=== PATIENT | female | born 1975 | race Caucasian/White ===

== ENCOUNTER 2016-05-21 12:27 | Inpatient (IN) | payer OTHER ==
[~2016-05-21] VITALS: Ht 175.3 cm; Wt 85.0 kg
[2016-05-21] MEDS ORDERED: MoRPHine SULFATE 4 MG/ML 1 ML CARP\\VIAL IV STA ×2 (12:40→14:52)
[2016-05-21] MEDS ORDERED: ONDANSETRON INJ 2 MG/ML 2 ML VIAL IV STA (12:40)
--- NOTE | 2016-05-21 12:43 | EMERGENCY ROOM VISIT NOTE ---
History First contact with patient: 12:34 Chief Complaint: ANKLE PAIN Stated Complaint: LEFT ANKLE PAIN History of Present Illness The patient is a 40 year old female who presents to the Emergency Room with complaints of left ankle pain. The patient states that she was walking in a parking garage and slipped on ice. She injured her left ankle. She rates her discomfort a 7/10. She states she has not been able to walk on the left ankle and it is deformed. She denies striking her head or having loss of consciousness. She denies abdominal pain, nausea or vomiting. She denies any other injury. She denies injury to the ankle in the past. Review of Systems A 10 system review of systems was completed with positives and pertinent negatives listed in the HPI. Past Medical/Surgical History Medical Problems: (1) Ankle fracture, bimalleolar, closed Patient denies Social History Smoking Status: Never Smoker Housing Status: lives with family Current/Historical Medications Scheduled Ferrous Sulfate (Iron), 2 TABS PO DAILY Allergies Coded Allergies: No Known Allergies (Unverified , 05/21/16) Physical Exam Vital Signs Date Time Temp Pulse Resp B/P Pulse Ox O2 Delivery O2 Flow Rate FiO2 05/21/16 14:11 62 17 106/78 99 Room Air 05/21/16 12:31 36.8 92 18 117/79 92 Room Air Physical Exam VITALS: Vitals are noted on the nurse's note and reviewed by myself. Vital signs stable. GENERAL: This is a 40-year-old female, in no acute distress, nondiaphoretic, well-developed well-nourished. SKIN: T there is deformity, edema and ecchymosis to the left ankle. There is no tenting of the skin. Capillary reflex less than 2 seconds. HEAD: Normocephalic atraumatic. EARS: The external ears and normal in appearance. EYES: Pupils equal round and reactive to light and accommodation. Conjunctivae without injection, sclerae without icterus. Extraocular movements intact. NOSE: Patent, turbinates without inflammation or discharge. MOUTH: Mucous membranes moist. Tonsils are not enlarged. Pharynx without erythema or exudate. Uvula midline. Airway patent. Tongue does not deviate. NECK: Supple without nuchal rigidity. No lymphadenopathy. No thyromegaly. Cervical spine is nontender. No JVD. HEART: Regular rate and rhythm without murmurs gallops or rubs. LUNGS: Clear to auscultation bilaterally without wheezes, rales or rhonchi. No retractions or accessory muscle use. MUSCULOSKELETAL: There is obvious deformity and instability to the left ankle. There are no open areas. There is mild tenderness to palpation to the foot and the proximal fibula. The remaining extremities are unremarkable. NEURO: Patient was alert and oriented to person place and time. Normal sensation to light and sharp touch. Deep tendon reflexes 2+ throughout. No focal neurological deficits. Medical Decision & Procedures ER Provider Diagnostic Interpretation: [~ rep ct add3]] LEFT ANKLE 3 VIEWS CLINICAL HISTORY: Left ankle injury and pain. FINDINGS: 3 views of left ankle are obtained. No prior studies are available for comparison at the time of dictation. The skeletal structures are well mineralized. There is a minimally distracted spiral fracture through the distal fibula. Additionally, there is a distracted avulsion fracture of the medial malleolus, with widening of the medial joint space which measures up to 8 mm. There is associated ankle joint effusion and surrounding soft tissue edema. IMPRESSION: Fracture/dislocation of the left ankle as above. Laboratory Results 05/21/16 13:07 Test 05/21/16 13:07 05/21/16 14:50 RDW Standard Deviation 48.6 fL (36.4-46.3) RDW Coefficient of Variation 14.7 % (11.5-14.5) White Blood Count 4.79 K/uL (4.8-10.8) Red Blood Count 4.19 M/uL (4.2-5.4) Hemoglobin 12.7 g/dL (12.0-16.0) Hematocrit 38.0 % (37-47) Mean Corpuscular Volume 90.7 fL (80-100) Mean Corpuscular Hemoglobin 30.3 pg (25-34) Mean Corpuscular Hemoglobin Concent 33.4 g/dl (32-36) Platelet Count 217 K/uL (130-400) Mean Platelet Volume 10.9 fL (7.4-10.4) Neutrophils (%) (Auto) 70.6 % Lymphocytes (%) (Auto) 21.5 % Monocytes (%) (Auto) 5.4 % Eosinophils (%) (Auto) 1.9 % Basophils (%) (Auto) 0.4 % Neutrophils # (Auto) 3.38 K/uL (1.4-6.5) Lymphocytes # (Auto) 1.03 K/uL (1.2-3.4) Monocytes # (Auto) 0.26 K/uL (0.11-0.59) Eosinophils # (Auto) 0.09 K/uL (0-0.5) Basophils # (Auto) 0.02 K/uL (0-0.2) Immature Granulocyte % (Auto) 0.2 % Immature Granulocyte # (Auto) 0.01 K/uL (0.00-0.02) Anion Gap 11.0 mmol/L (3-11) Est Creatinine Clear Calc Drug Dose 134.3 ml/min Estimated GFR () 128.1 Estimated GFR (Non- 110.5 BUN/Creatinine Ratio 23.8 (10-20) Calcium Level 8.7 mg/dl (8.5-10.1) Medications Administered Medications (Trade) Dose Ordered Sig/Fanny Route Start Time Stop Time Status Last Admin Dose Admin Morphine Sulfate (MoRPHine SULFATE INJ) 4 mg NOW STAT IV 05/21/16 12:40 05/21/16 12:42 DC 05/21/16 13:01 4 MG Ondansetron HCl (Zofran Inj) 4 mg NOW STAT IV 05/21/16 12:40 05/21/16 12:42 DC 05/21/16 13:01 4 MG Morphine Sulfate (MoRPHine SULFATE INJ) 4 mg NOW STAT IV 05/21/16 14:52 05/21/16 14:53 DC 05/21/16 15:01 4 MG Procedure An Ortho-Glass splint was applied. I did use gentle manipulation of the ankle and attempt to have slightly better alignment. At this time, I held the foot and assisted the emergency department engineering technician parking in applying an Ortho-Glass posterior leg and stirrup splint. The position of the splint was satisfactory. The patient states that her pain improved markedly with this. Her toes were warm and pink and she had a good pulse and good sensation after splinting. ED Course The patient was seen and examined. Previous visits were reviewed. The patient does not have a fever or leukocytosis. She does not have any significant electrolyte abnormalities. The patient has a left bimalleolar ankle fracture with slight anterior subluxation. This is an unstable fracture. I discussed the case with Dr. Marks. He recommends slightly improving the alignment and placing a splint. This was done as above. He states that that they will evaluate the patient, admit her to the hospital and perform surgery tomorrow. The patient was given a total of 8 mg IV morphine and 4 mg IV Zofran. Her pain was very well controlled. The case was discussed with Dr. Castellanos who agrees with the assessment and treatment plan Medical Decision The differential diagnosis includes extremity fracture, sprain, strain, dislocation, among others Impression Primary Impression: Ankle fracture, bimalleolar, closed Departure Information Referrals No Doctor, Assigned (PCP) Patient Instructions [facility] Problem Qualifiers Primary Impression: Ankle fracture, bimalleolar, closed Encounter type: initial encounter Laterality: left Qualified Codes: S82.842A - Displaced bimalleolar fracture of left lower leg, initial encounter for closed fracture
[2016-05-21] MEDS ORDERED: FERR1TAB23 PO (13:10)
[2016-05-21 13:21] LABS: BASO % 0.4 %; BASO ABS # 0.02 K/uL (0-0.2); COMPLETE YES; EOS % 1.9 %; IG% 0.2 %; LYMPH % 21.5 %; LYMPH ABS # 1.03 K/uL (1.2-3.4); MEAN CELL VOLUME 90.7 fL (80-100); MEAN CORPUSCULAR HEMOGLOBIN 30.3 pg (25-34); MEAN CORPUSCULAR HGB CONC 33.4 g/dl (32-36); MEAN PLATELET VOLUME 10.9 fL (7.4-10.4); MONO % 5.4 %; NEUT % 70.6 %; PLATELET COUNT 217 K/uL (130-400); RED BLOOD COUNT 4.19 M/uL (4.2-5.4); WHITE BLOOD COUNT 4.79 K/uL (4.8-10.8)
[2016-05-21 13:41] LABS: BUN/CREATININE RATIO 23.8 (10-20); CALCIUM 8.7 mg/dl (8.5-10.1); CREATININE 0.66 mg/dl (0.60-1.20); POTASSIUM 3.6 mmol/L (3.5-5.1)
--- NOTE | 2016-05-21 13:46 | DIAGNOSTIC IMAGING REPORT ---
LEFT TIBIA/FIBULA 2 VIEWS ROUTINE CLINICAL HISTORY: left leg pain TRAUMA COMPARISON: None. DISCUSSION: There is acute fracture of the distal fibula. There is a transverse fracture of the medial malleolus. There is widening of the medial ankle mortise. There is mild anterior translation of the tibia with respect the talus. IMPRESSION: Bimalleolar fracture subluxation. Electronically signed by: Caleb Thompson M.D. 05/21/2016 1:44 PM Dictated Date/Time: 05/21/2016 1:43 PM
--- NOTE | 2016-05-21 13:48 | DIAGNOSTIC IMAGING REPORT ---
LEFT ANKLE 3 VIEWS CLINICAL HISTORY: Left ankle injury and pain. FINDINGS: 3 views of left ankle are obtained. No prior studies are available for comparison at the time of dictation. The skeletal structures are well mineralized. There is a minimally distracted spiral fracture through the distal fibula. Additionally, there is a distracted avulsion fracture of the medial malleolus, with widening of the medial joint space which measures up to 8 mm. There is associated ankle joint effusion and surrounding soft tissue edema. IMPRESSION: Fracture/dislocation of the left ankle as above. Electronically signed by: Josef Birmingham M.D. 05/21/2016 1:47 PM Dictated Date/Time: 05/21/2016 1:45 PM
--- NOTE | 2016-05-21 13:48 | DIAGNOSTIC IMAGING REPORT ---
LEFT FOOT MIN 3 VIEWS ROUTINE CLINICAL HISTORY: Left foot pain status post trauma COMPARISON: None. DISCUSSION: There is oblique fracture of the distal fibula. There is a fracture of the medial malleolus. There is disruption of the ankle mortise. No fractures of the foot proper are visualized. IMPRESSION: 1. Bimalleolar fracture subluxation 2. No fractures of the foot proper are visualized Electronically signed by: Caleb Thompsno M.D. 05/21/2016 1:47 PM Dictated Date/Time: 05/21/2016 1:46 PM
[2016-05-21] MEDS ORDERED: ONDANSETRON INJ 2 MG/ML 2 ML VIAL IV PRN (15:00)
[2016-05-21] MEDS ORDERED: HYDROmorphone INJ 1 MG/ML SYR IV PRN (15:00)
[2016-05-21] MEDS ORDERED: ACETAMINOPHEN 325 MG TAB PO PRN (15:00)
[2016-05-21] MEDS ORDERED: IV FLUIDS COMPLETED PRN (15:30)
[2016-05-21 17:15] VITALS: O2SAT 95
[2016-05-21] MEDS: SODIUM CHLORIDE 0.9% 1000ML 1,000 ML IV SCH (18:05)
--- NOTE | 2016-05-21 18:23 | HISTORY & PHYSICAL EXAMINATION ---
DATE OF ADMISSION: 05/21/2016 SUBJECTIVE CHIEF COMPLAINT: She presents to the office today with left ankle pain. HISTORY OF PRESENT ILLNESS: Adriane is a very pleasant 40-year-old female who presents to the Emergency Room with complaint of left ankle pain. She states that she was walking in a parking garage, slipped on some ice. She inverted and twisted her left ankle. Currently, she states her discomfort is approximately 7/10. She is unable to walk on the ankle prior to coming to the ER. She states that it looks deformed. She denies hitting her head or losing any consciousness. Denies any abdominal pain, nausea or vomiting. Denies any other injury. Denies any ankle injury to her left ankle in the past. PAST MEDICAL HISTORY: None. PAST SURGICAL HISTORY: None. CURRENT MEDICATIONS: She is on ferrous sulfate. ALLERGIES: She has no known drug allergies. SOCIAL HISTORY: She is a nonsmoker. She lives with her family. No alcohol use. REVIEW OF SYSTEMS: A 10-system review of systems was completed with positives and pertinent negatives as listed in the HPI. MUSCULOSKELETAL: She complains of joint pain and stiffness. All other review of systems were normal. PHYSICAL EXAMINATION: CONSTITUTIONAL: The patient is alert and oriented, sitting in bed. She is comfortable. VITAL SIGNS: Her pulse is 62, respirations 17, her blood pressure is 106/78, pulse ox is 99% on room air. CARDIOVASCULAR: Brisk capillary refill in distal extremities. Normal S1, S2. No S3 was auscultated. RESPIRATORY: Equal and bilateral breath sounds. No rales, rhonchi or wheezing auscultated. GASTROINTESTINAL: Abdomen is soft, nontender. No organomegaly was percussed. INTEGUMENTARY: No skin rashes, no breakages of the skin. There is some swelling with no ecchymosis of her left ankle. MUSCULOSKELETAL: There is an obvious deformity of the ankle. No breakages of the skin. There is swelling around the ankle. No ecchymosis was noted. She is neurovascularly intact in distal extremity. Pulses were palpated and present. She does have pain with palpation on the medial and lateral aspect of the ankle. Range of motion was not demonstrated due to pain. Left ankle 3 views was obtained in the Emergency Room. There is a minimally distracted spiral fracture to the distal fibula. Additionally, there is a distracted avulsion fracture of the medial malleolus with widening of the medial joint space which measures up to 8 mm. There is associated ankle joint effusion with surrounding soft tissue edema. ASSESSMENT AND DIAGNOSIS: Bimalleolar fracture closed of her left ankle. PLAN: At this time, we are going to admit her to the orthopedic service on med/surg floor. We will provide pain medication and make her comfortable. We did provide a splint to her ankle for stabilization, ice as well. She can eat today, but she will be n.p.o. after midnight. We are going to plan for her to be scheduled to go to the OR tomorrow at 07:30 for an ORIF fixation of the left ankle. Plan on using possible tubular fibular plate for the fibula and cannulated screws for the malleolus. We did discuss the procedure with patient. We discussed the risks and benefits as well as expected outcomes and she does fully agree and understand. We will follow her up in our office in approximately 10-14 days postop, suture removal and possible casting.
[2016-05-21 19:36] VITALS: BP 102/69; PULSE 72; TEMP 37.2; O2SAT 95; Ht 175.3 cm; Wt 85.0 kg
[2016-05-21] MEDS: OXYCODONE/ACETAMINOPHEN 5-325 TAB PO PRN (20:49)
[2016-05-21 22:52] VITALS: BP 99/61; PULSE 71; TEMP 36.8; O2SAT 98
[2016-05-22] VITALS (8 sets, daily range): BP systolic 102–116; BP diastolic 66–77; PULSE 58–101; TEMP 36.3–36.9; O2SAT 91–98
[2016-05-22] MEDS: SODIUM CHLORIDE 0.9% 1000ML 1,000 ML IV SCH ×2 (03:45→15:55)
[2016-05-22] MEDS: OXYCODONE/ACETAMINOPHEN 5-325 TAB PO PRN (03:46)
[2016-05-22] MEDS ORDERED: CEFAZOLIN IV 2,000 MG in DEXTROSE 5% 50ML 50 ML IV SCH (06:00)
[2016-05-22] MEDS ORDERED: CEFAZOLIN 2000 MG/60 ML D5W IV SCH (06:00)
[2016-05-22] MEDS ORDERED: LIDOCAINE HCL 2% 2 ML VIAL (20MG/ML) ONE (06:44)
[2016-05-22] MEDS ORDERED: PROPOFOL IV EMULSION 10 MG/ML 20 ML VIAL IV ONE (06:44)
[2016-05-22] MEDS ORDERED: MIDAZOLAM HCL 1 MG/ML 2ML VIAL ONE ×2 (06:44)
[2016-05-22] MEDS ORDERED: FENTANYL CITRATE INJ 50 MCG/1 ML 2 ML VIAL ONE ×2 (06:44→08:47)
[2016-05-22] MEDS ORDERED: ONDANSETRON INJ 2 MG/ML 2 ML VIAL ONE (06:44)
[2016-05-22] MEDS ORDERED: DEXAMETHASONE SOD INJ 4 MG/ML VIAL ONE (06:44)
[2016-05-22] MEDS ORDERED: BUPIVACAINE/EPINEPHRINE 0.5% MPF 1:200,000 30 ML VIAL ONE (07:08)
[2016-05-22] MEDS ORDERED: BACITRACIN 50000 UNIT VIAL ONE (07:08)
[2016-05-22 07:21] LABS: PREG INTERNAL NEGATIVE QC NEG CLEAR BACKGROUND; PREG INTERNAL POSITIVE QC POS CONTROL LINE
[2016-05-22] MEDS ORDERED: ROPIVACAINE 0.5% 5 MG/ML 30 ML VIAL ONE (07:26)
[2016-05-22] MEDS ORDERED: CEFAZOLIN SOD 1 GM VIAL ONE (07:27)
[2016-05-22] MEDS ORDERED: ATROPINE SULFATE 0.1 MG/ML 5ML SYR IV PRN (07:30)
[2016-05-22] MEDS ORDERED: ONDANSETRON INJ 2 MG/ML 2 ML VIAL IV PRN (07:30)
[2016-05-22] MEDS ORDERED: KETOROLAC TROMETHAMINE 30 MG/ML VIAL IV. PRN (07:30)
[2016-05-22] MEDS ORDERED: LABETALOL HCL IV 5 MG/ML 20ML IV PRN (07:30)
[2016-05-22] MEDS ORDERED: PROMETHAZINE HCL INJ 12.5 MG in SODIUM CHLORIDE 0.9% 50ML 50 ML IV PRN (07:30)
--- NOTE | 2016-05-22 07:33 | History & Physical Bridge Note ---
H&P Re-Evaluation Bridge Note: I have examined the patient, reviewed the History & Physical and in the interval since the performance of the History & Physical I have noted the following changes of clinical significance: No changes noted
[2016-05-22] MEDS ORDERED: EpHEDrine SULFATE 50MG/5ML SYR ONE (08:07)
[2016-05-22] MEDS ORDERED: ATROPINE SULFATE 0.1 MG/ML 5ML SYR IV ONE (08:37)
[2016-05-22] MEDS ORDERED: SODIUM CHLORIDE 0.9% 1000ML 1,000 ML IV SCH (09:43)
--- NOTE | 2016-05-22 09:43 | DIAGNOSTIC IMAGING REPORT ---
INTRAOPERATIVE RADIOGRAPHS CLINICAL HISTORY: Open reduction and internal fixation of left ankle. Fluoroscopy time: 4 seconds. FINDINGS: 2 spot fluoroscopic views of the left ankle are correlated with radiographs dated 05/21/16. 2 cortical lag screw transfix a fracture of the medial malleolus. There is been buttress plate fixation of a distal fibular fracture with at least 5 cortical lag screws transfixing the plate. An additional screw transfixes the fracture. Near-anatomic alignment has been restored at the ankle joint. Overlying soft tissue edema is noted. IMPRESSION: Intraoperative images from open reduction and internal fixation of left ankle fractures as above. Electronically signed by: Josef Birmingham M.D. 05/22/2016 9:42 AM Dictated Date/Time: 05/22/2016 9:40 AM
--- NOTE | 2016-05-22 09:44 | [facility] Post Operative Brief Note ---
Immediate Operative Summary Operative Date May 22, 2016. Pre-Operative Diagnosis Bimalleolar fracture closed of her left ankle Post-Operative Diagnosis Same Procedure(s) Performed Left Ankle Bimalleolar Fracture Open Reduction Internal Fixation Surgeon Dr Marks Nonprofit Fundraiser Surgeon(s) Karan Patel PA-C Estimated Blood Loss 10ml Findings ankle fracture Specimens None Complication(s) None Disposition Recovery Room / PACU
[2016-05-22] MEDS ORDERED: OXYCODONE/ACETAMINOPHEN 5-325 TAB PO PRN (09:45)
[2016-05-22] MEDS ORDERED: HYDROmorphone INJ 0.5 MG/0.5 ML SYR IV PRN (09:45)
[2016-05-22] MEDS: HYDROmorphone INJ 2 MG/ML SYR/VIAL IV PRN ×4 (09:57→10:12)
--- NOTE | 2016-05-22 10:11 | Anesthesiology Progress Note ---
Anesthesia Post Op Note Date & Time May 22, 2016 at 10:10 Vital Signs Vital Signs Past 12 Hours Date Time Temp Pulse Resp B/P Pulse Ox O2 Delivery O2 Flow Rate FiO2 05/22/16 10:00 83 16 114/69 100 Mask 10 05/22/16 09:50 36.5 90 16 119/75 100 Mask 10 05/22/16 09:44 36.5 98 16 120/70 100 Mask 10 05/21/16 23:55 Room Air 05/21/16 22:52 36.8 71 18 99/61 98 Room Air Notes Mental Status: alert / awake / arousable, participated in evaluation Pt Amnestic to Procedure: Yes Nausea / Vomiting: adequately controlled Pain: adequately controlled Airway Patency, RR, SpO2: stable & adequate BP & HR: stable & adequate Hydration State: stable & adequate Anesthetic Complications: no major complications apparent
[2016-05-22] MEDS: KETOROLAC TROMETHAMINE 30 MG/ML VIAL IV SCH ×2 (16:42→22:01)
[2016-05-22] MEDS: CEFAZOLIN IV 1,000 MG in DEXTROSE 5% 50ML 50 ML IV SCH (17:33)
[2016-05-23] MEDS: CEFAZOLIN IV 1,000 MG in DEXTROSE 5% 50ML 50 ML IV SCH (01:51)
[2016-05-23] MEDS: KETOROLAC TROMETHAMINE 30 MG/ML VIAL IV SCH ×2 (03:58→09:40)
[2016-05-23 04:00] VITALS: BP 98/60; PULSE 63; TEMP 36.5; O2SAT 97
[2016-05-23] MEDS: SODIUM CHLORIDE 0.9% 1000ML 1,000 ML IV SCH (04:01)
[2016-05-23 07:21] VITALS: BP 104/68; PULSE 63; TEMP 36.7; O2SAT 94
[2016-05-23] MEDS ORDERED: HYDR-5688 PO (10:25)
--- NOTE | 2016-05-23 10:30 | Discharge Instructions ---
Discharge Instructions Admission Reason for Admission: Ankle Fracture,Bimalleolar,Closed Discharge Discharge Diagnosis / Problem: ankle fracture Discharge Goals Goal(s): Improve function Activity Recommendations Activity Limitations: as noted below Lifting Limitations: until after follow-up appointment Exercise/Sports Limitations: until after follow-up appointment May Resume Sexual Activity: after follow-up appointment Shower/Bathe: keep incision dry Driving or Machine Use: Weightbearing Status: Left non-weightbearing home ,rest, recover. prop up ankle. Leave dressing and splint intact. No weight on left for one month. . Instructions / Follow-Up Instructions / Follow-Up call office @ [phone] for appointment this Tuesday Current Hospital Diet Patient's current hospital diet: Regular Diet Discharge Diet Recommended Diet: Regular Diet Fluid Restriction: None (Aspirin 325 daily) Procedures Procedures Performed: Left Ankle Bimalleolar Fracture Open Reduction Internal Fixation Pending Studies Studies pending at discharge: no Medical Emergencies . Who to Call and When: Medical Emergencies: If at any time you feel your situation is an emergency, please call 911 immediately. . Non-Emergent Contact Non-Emergency issues call your: Surgeon Call Non-Emergent contact if: you have any medication questions . "Provider Documentation" section prepared by David Marks. VTE Core Measure Inpt VTE Proph given/why not?: Treatment not indicated
[2016-05-23 11:04] VITALS: BP 104/68; PULSE 63; TEMP 36.7; O2SAT 94
[2016-05-23] MEDS ORDERED: HYDROmorphone INJ 2 MG/ML SYR/VIAL IV ONE (12:59)
[2016-05-23] MEDS ORDERED: KETOROLAC TROMETHAMINE 30 MG/ML VIAL IV. ONE (12:59)
--- NOTE | 2016-05-24 02:09 | DISCHARGE SUMMARY ---
No complaints of pain. She is alert, oriented. Vital signs stable. No chest pain or shortness of breath. She will be discharged home later on today. Instructions, precautions given. Essentially no weightbearing for 1 month. She is to call the office tomorrow for an appointment. Careful with bending, stooping and lifting. She has prescriptions on her chart for Juda for pain and adult aspirin 325 mg to be taken daily. Followup examination in approximately 5 days.
--- NOTE | 2016-05-24 07:18 | OPERATIVE REPORT ---
DATE OF OPERATION: 05/22/2016 PREOPERATIVE DIAGNOSIS: Bimalleolar fracture of the left ankle. POSTOPERATIVE DIAGNOSIS: Same. PROCEDURE: Open reduction internal fixation left ankle. SURGEON: Dr. Marks. CLEAN IN PLACES OPERATOR: Karan Patel PA-C. COMPLICATION: Zero. EBL less than 10 mL. The patient was taken to the operating room, a LMA anesthetic provided to the patient, her left lower extremity scrubbed first with Betadine, prepped with ChloraPrep from her toe all the way up to mid thigh, tourniquet applied as well. We draped her sterile and commenced with surgery. We made a 6 cm skin incision over the left distal fibula, dissecting the soft tissue in the same plane stripping down the fibula. We were able to get the fibula out to length in anatomic spiritism. I used a lag screw technique anterior to posterior to hold the fracture. We then put a 5-hole semitubular plate lateral to medial in anatomic position. We irrigated thoroughly. We then went to the medial side; skin incision, fascial incision, reduced to medial malleolar fragment. I used two 4-0 cannulated screws to hold the medial malleolar piece. The reduction was anatomic. We irrigated, closed in layers, 3-0 nylon on the skin, sterile dressing applied, splint applied. There were no complications. Sponge and needle count correct at the close of the procedure. I attest to the content of the Intraoperative Record and any orders documented therein. Any exceptio ns are noted below.
== END 2016-05-23 13:00 | disposition home or self-care (01) | DRG 494 ==
LOC: ENRESERVTM → ENRESERVDT → C.EDB 12:29 → C.MSW 16:00
PROVIDERS: ADMIT Orthopaedic Surgery Orthopaedic Surgery of the Spine; ATTEND Orthopaedic Surgery Orthopaedic Surgery of the Spine
PROC: 0QSK04Z Reposition Left Fibula with Internal Fixation Device, Open Approach (ICD-10-PCS; principal; 2016-05-22 07:30)
DX: S82.842A Displaced bimalleolar fracture of left lower leg, initial encounter for closed fracture (principal); W00.0XXA Fall on same level due to ice and snow, initial encounter; Y92.89 Other specified places as the place of occurrence of the external cause

== ENCOUNTER → 2017-03-07 | Outpatient (CLI) | payer OTHER ==
[~2017-03-07] MED LIST: FERR1TAB23 PO
--- NOTE | 2017-03-07 17:13 | DIAGNOSTIC IMAGING REPORT ---
KUB HISTORY: N20.0 Kidney [id number] Renal lesion COMPARISON: Abdomen and pelvis CT 02/24/2016. FINDINGS: The bowel gas pattern is unremarkable. There are no dilated loops of small bowel to suggest an obstruction. There are few punctate stones within each kidney. No ureteral or bladder calculi. Calcifications within the deep pelvis are demonstrated to be phleboliths and are unchanged from the prior CT examination. No pneumoperitoneum or pneumatosis. IMPRESSION: Bilateral nephrolithiasis. No ureteral calculi. Electronically signed by: Chintan Milligan M.D. 03/07/2017 5:11 PM Dictated Date/Time: 03/07/2017 5:09 PM
== END | disposition home or self-care (01) ==
LOC: C.RAD 16:19
PROVIDERS: ATTEND Urology
DX: N20.0 Calculus of kidney (principal); N28.9 Disorder of kidney and ureter, unspecified

== ENCOUNTER 2019-08-31 23:17 | Inpatient (IN) ==
[2019-08-31] MEDS: SODIUM CHLORIDE 0.9% 500 ML IV SCH (23:45)
[2019-08-31 23:50] LABS: Appearance Urine Cloudy (Clear); Bacteria Urine Automated Negative (Negative); Bilirubin Urine Negative (Negative); Blood Urine 3+ (Negative); Color Urine Orange; Epithelial Cell Urine Auto >30 /lpf (0-5); Glucose Urine UA Negative (Negative); Ketones Urine Trace (Negative); Leukocyte Esterase Urine Trace (Negative); Nitrite Urine Negative (Negative); Protein Urine 2+ (Negative); RBC Urine Automated >30 /hpf (0-4); Specific Gravity Urine 1.032 (1.000-1.030); Urobilinogen Urine Negative (Negative)
[2019-08-31 23:58] LABS: Hematocrit (blood only) 19.3 % (37-47); Hemoglobin 6.1 g/dL (12.0-16.0); Mean Corpuscular Hemoglobin 27.1 pg (25-34); Mean Corpuscular Hgb Conc 31.6 g/dL (32-36); Mean Corpuscular Volume 85.8 fL (80-100); Mean Platelet Volume 10.4 fL (7.4-10.4); Platelet Count 311 K/uL (130-400); RDW Coefficient of Variation 16.9 % (11.5-14.5); Red Blood Count 2.25 M/uL (4.2-5.4); White Blood Count 11.51 K/uL (4.8-10.8)
[2019-09-01 00:01] LABS: Calcium Oxalate Crystals Urine Present (None Prsent)
[2019-09-01] MEDS ORDERED: SODIUM CHLORIDE 0.9% 250 ML IV PRN ×2 (00:11→05:09)
--- NOTE | 2019-09-01 00:11 | Emergency Department Note ---
History of Present Illness General Chief complaint: Vaginal Bleeding Stated complaint: HEAVY BLEEDING FOR 6 DAYS Time Seen by Provider: 08/31/19 23:32 Source: patient Mode of arrival: ambulatory Limitations: no limitations History of Present Illness Provider complaint: Vaginal bleeding, dizziness Onset (ago): week(s) 2 Current Pain Intensity: 0 Associated symptoms: + loss of appetite, + malaise, + shortness of breath and + weakness Treatments prior to arrival: none This is a 43-year-old female who presents from home following 14 days of vaginal bleeding, heavy over the last 6 days. Patient states she has had 1 prior episode of heavy bleeding although this has been worse. Patient states she is becoming more and more weak, dizzy and lightheaded with movement and standing up, and feels short of breath when walking to the bathroom. Patient states she is passing large clots which she describes as larger than the size of an egg. Patient states over the last 6 days she has been soaking 2-3 pads an hour. Patient states she does have a history of endometriosis as well as uterine fibroids. Patient states in March she was started on the Depo shot by PU[employer] INST[employer]ATION AND SERVICER. She states her first injection was in March and her second injection was in June. Patient states she has had intermittent light period since then usually consisting of 2 days of very light bleeding. Patient states 14 days ago she began again with 2 days of very light spotting which she thought again with her period, however then for another 5 or 6 days she had continued bleeding more like a light to moderate., And then over the last 6 days she has had persistent heavy bleeding with worsening symptoms. No other recent illness, no fevers or chills. Patient denies any chest pain or palpitations. She states with exertion she does feel a sense of a fast heart rate. Patient denies any change in bowel or bladder habits. Denies any abdominal pain or cramping, does admit to some dull low back pain which just began today. Pt seen during a time of high acuity and national emergency pandemic while wearing PPE. Home Medications Home Medications Medication Instructions Recorded Confirmed Type medroxyprogesterone 150 mg/mL 150 mg IM Q3MO #1 ml 03/27/19 08/31/19 Rx intramuscular suspension ferrous sulfate [iron] 0 mg PO DAILY 08/31/19 08/31/19 History conjugated estrogens [Premarin] 2.5 mg PO DAILY #6 tab 09/01/19 Rx Allergies Allergy/AdvReac Type Severity Reaction Status Date / Time No Known Allergies Allergy Verified 08/31/19 23:56 Past Med/Surg History Medical History Menorrhagia Uterine fibroid Surgical History S/P appendectomy S/P tubal ligation Family History Father Diabetes Social History Preferred Language: Argentine Communication Ability: Effective 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 and A total of 10 systems reviewed and were otherwise negative Physical Exam Vital Signs Vital Signs - 24 hr 08/31/19 23:20 09/01/19 01:23 09/01/19 01:40 Temperature 36.8 C 37.0 C Temperature Source Oral Oral Pulse Rate 114 H 102 H Pulse Rate [Apical] 94 H Respiratory Rate 20 15 17 Respiratory Effort / Characteristics Non-Labored Spontaneous Respiratory Depth Normal Blood Pressure 109/70 96/65 L Blood Pressure [Left Arm] 95/65 L Blood Pressure Mean 83 75 Blood Pressure Mean [Left Arm] 75 Pulse Oximetry 98 100 100 Oxygen Delivery Method Room Air Room Air Sepsis Action Taken by Nursing No Action Required 09/01/19 01:53 09/01/19 02:03 09/01/19 02:08 Temperature 36.8 C 37.3 C 37.1 C Temperature Source Oral Oral Oral Pulse Rate 100 H Pulse Rate [Apical] 94 H Respiratory Rate 18 18 Respiratory Effort / Characteristics Respiratory Depth Blood Pressure 93/67 L Blood Pressure [Left Arm] 101/64 Blood Pressure Mean 75 Blood Pressure Mean [Left Arm] 76 Pulse Oximetry 99 98 Oxygen Delivery Method Room Air Sepsis Action Taken by Nursing 09/01/19 02:18 09/01/19 02:48 Temperature 36.8 C 37.2 C Temperature Source Oral Oral Pulse Rate 101 H 96 H Pulse Rate [Apical] Respiratory Rate 17 16 Respiratory Effort / Characteristics Respiratory Depth Blood Pressure 97/62 L 101/61 Blood Pressure [Left Arm] Blood Pressure Mean 73 74 Blood Pressure Mean [Left Arm] Pulse Oximetry 100 100 Oxygen Delivery Method Sepsis Action Taken by Nursing GENERAL: alert, ill appearing, well nourished, no distress, pale appearing EYE EXAM: normal conjunctiva, PERRL and EOM's grossly intact OROPHARYNX: no exudate, no erythema, lips, buccal mucosa, and tongue normal and mucous membranes are moist NECK: supple, no nuchal rigidity, no adenopathy, non-tender LUNGS: Clear to auscultation. Normal chest wall mechanics, no w/r/r HEART: no murmurs, S1 normal and S2 normal, HR 107 and BP 94/72 ABDOMEN: abdomen soft, non-tender, normo-active bowel sounds, no masses, no rebound or guarding. BACK: Back is symmetrical on inspection and there is no deformity, no midline tenderness, no CVA tenderness. SKIN: no rashes and no bruising, no petechaie UPPER EXTREMITIES: upper extremities are grossly normal. FROM, nml pulses b/l. LOWER EXTREMITIES: No pitting edema. FROM, nml pulses b/l. NEURO EXAM: Normal sensorium, cranial nerves II-XII grossly intact, normal speech, no gross weakness of arms, no gross weakness of legs. Gross sensation intact. Course Course 0132: Pt updated on results. Discussed blood transfusion at bedside. Patient in agreement. Consent form signed. 0215: Case discussed with Dr. Mcfarlane, revenue tax specialist. She would like pt to be given TXA orally and she will be down to see the patient. Given rail technician was coming to evaluate the patient, I deferred my pelvic exam as they will perform one at bedside 0222: Pt updated on plan. 0226: Called pharmacy. We don't have the oral txa here. They will contact Dr. Mcfarlane to discuss alternative forms. 0300: Dr. Mcfarlane now in the emergency room evaluating the patient. Administered Medications Discontinued Medications Estrogens Conjugated (Premarin) 2.5 mg PO BID MICHAEL Stop: 10/01/19 03:04 Last Admin: 09/01/19 05:06 Dose: 2.5 mg Documented by: [id number] Ferrous Sulfate (Feosol) 325 mg PO DAILY MICHAEL Stop: 10/01/19 08:59 Last Admin: 09/01/19 08:47 Dose: 325 mg Documented by: [id number] Sodium Chloride (Nss) 500 mls @ 250 mls/hr IV .Q2H MICHAEL Stop: 09/30/19 23:44 Last Admin: 09/01/19 05:00 Dose: 250 mls/hr Documented by: [id number] Infusion: 09/01/19 04:36 Dose: 250 mls/hr Documented by: [id number] Admin: 09/01/19 02:36 Dose: 250 mls/hr Documented by: [id number] Infusion: 09/01/19 01:49 Dose: 0 mls/hr Documented by: [id number] Admin: 08/31/19 23:45 Dose: 250 mls/hr Documented by: [id number] Sodium Chloride (Nss 1000ml) 500 mls @ 999 mls/hr IV .Q31M ONE Stop: 09/01/19 02:23 Last Infusion: 09/01/19 02:31 Dose: 0 mls/hr Documented by: [id number] Admin: 09/01/19 01:56 Dose: 999 mls/hr Documented by: [id number] Tranexamic Acid (Tranexamic Acid / 0.7% Nacl) 1,000 mg in 100 mls @ 600 mls/hr IV NOW STA Stop: 09/01/19 02:38 Last Infusion: 09/01/19 02:47 Dose: 0 mls/hr Documented by: [id number] Admin: 09/01/19 02:36 Dose: 600 mls/hr Documented by: [id number] Critical Care Time Critical Care Time: Yes Total Critical Care Time: 41 Critical care of 41 min performed to assess and manage high likelihood of life- threatening hemorrhage, involving labs/imaging performed with assessment to evaluate vaginal bleeding with frequent reassessment. This time includes bedside time, treatment discussions with patient/family/consultants, documentation time and excludes procedure time. Medical Decision Making Differential Diagnosis Differential diagnosis includes etiologies such as ectopic , dysfunc tion uterine bleeding, bleeding dyscrasia, trauma, infection, as well as others were entertained. Medical Records Attestation: I reviewed the patient's medical records. Home Medications Current Medication List: was personally reviewed by me Laboratory Data Attestation: I reviewed the patient's lab results. Result diagrams: 09/01/19 09:01 08/31/19 23:30 Lab Results 08/31/19 08/31/19 08/31/19 Range/Units 23:30 23:30 23:30 WBC 11.51 H (4.8-10.8) K/uL RBC 2.25 L (4.2-5.4) M/uL Hgb 6.1 L* (12.0-16.0) g/dL Hct 19.3 L* (37-47) % MCV 85.8 (80-100) fL MCH 27.1 (25-34) pg MCHC 31.6 L (32-36) g/dL RDW Std Deviation 51.0 H (36.4-46.3) fL RDW Coeff of Mariano 16.9 H (11.5-14.5) % Plt Count 311 (130-400) K/uL MPV 10.4 (7.4-10.4) fL PT (9.0-12.0) Seconds INR (0.9-1.1) Sodium 141 (136-145) mmol/L Potassium 3.8 (3.5-5.1) mmol/L Chloride 109 H (98-107) mmol/L Carbon Dioxide 24 (21-32) mmol/L Anion Gap 7.0 (3-11) BUN 22 H (7-18) mg/dl Creatinine 0.80 (0.6-1.2) mg/dl Est Cr Clr Drug Dosing Not Reportable Est GFR ( Amer) 104.7 Est GFR (Non-Af Amer) 90.3 BUN/Creatinine Ratio 28.1 H (10-20) Glucose 132 H (70-99) mg/dl Calcium 8.3 L (8.5-10.1) mg/dl Total Bilirubin < 0.1 L (0.2-1) mg/dl Direct Bilirubin < 0.1 (0-0.2) mg/dl AST 14 L (15-37) U/L ALT 22 (12-78) U/L Alkaline Phosphatase 42 L (45-117) U/L Total Protein 5.8 L (6.4-8.2) gm/dl Albumin 3.0 L (3.4-5.0) gm/dl HCG, Qual Negative (Negative) Urine Color Urine Appearance (Clear) Urine pH (4.5-7.5) Ur Specific [place] (1.000-1.030) Urine Protein (Negative) Urine Glucose (UA) (Negative) Urine Ketones (Negative) Urine Blood (Negative) Urine Nitrite (Negative) Urine Bilirubin (Negative) Urine Urobilinogen (Negative) Ur Leukocyte Esterase (Negative) Urine WBC (Auto) (0-5) /hpf Urine RBC (Auto) (0-4) /hpf U Hyaline Cast (Auto) (0-5) /lpf U Epithel Cells (Auto) (0-5) /lpf Urine Bacteria (Auto) (Negative) Ur Renal Epithelial Cell Calcium Oxalate Crystal (None Prsent) Blood Type Blood Type Recheck Antibody Screen Crossmatch 08/31/19 08/31/19 08/31/19 Range/Units 23:30 23:30 23:37 WBC (4.8-10.8) K/uL RBC (4.2-5.4) M/uL Hgb (12.0-16.0) g/dL Hct (37-47) % MCV (80-100) fL MCH (25-34) pg MCHC (32-36) g/dL RDW Std Deviation (36.4-46.3) fL RDW Coeff of Mariano (11.5-14.5) % Plt Count (130-400) K/uL MPV (7.4-10.4) fL PT 10.2 (9.0-12.0) Seconds INR 1.0 (0.9-1.1) Sodium (136-145) mmol/L Potassium (3.5-5.1) mmol/L Chloride (98-107) mmol/L Carbon Dioxide (21-32) mmol/L Anion Gap (3-11) BUN (7-18) mg/dl Creatinine (0.6-1.2) mg/dl Est Cr Clr Drug Dosing Est GFR ( Amer) Est GFR (Non-Af Amer) BUN/Creatinine Ratio (10-20) Glucose (70-99) mg/dl Calcium (8.5-10.1) mg/dl Total Bilirubin (0.2-1) mg/dl Direct Bilirubin (0-0.2) mg/dl AST (15-37) U/L ALT (12-78) U/L Alkaline Phosphatase (45-117) U/L Total Protein (6.4-8.2) gm/dl Albumin (3.4-5.0) gm/dl HCG, Qual (Negative) Urine Color [place] Urine Appearance Cloudy A (Clear) Urine pH 5.0 (4.5-7.5) Ur Specific [place] 1.032 H (1.000-1.030) Urine Protein 2+ H (Negative) Urine Glucose (UA) Negative (Negative) Urine Ketones Trace H (Negative) Urine Blood 3+ H (Negative) Urine Nitrite Negative (Negative) Urine Bilirubin Negative (Negative) Urine Urobilinogen Negative (Negative) Ur Leukocyte Esterase Trace H (Negative) Urine WBC (Auto) 1-5 (0-5) /hpf Urine RBC (Auto) >30 H (0-4) /hpf U Hyaline Cast (Auto) 5-10 H (0-5) /lpf U Epithel Cells (Auto) >30 H (0-5) /lpf Urine Bacteria (Auto) Negative (Negative) Ur Renal Epithelial Cell Not Reportable Calcium Oxalate Crystal Present A (None Prsent) Blood Type AB Positive Blood Type Recheck Antibody Screen NEGATIVE Crossmatch See Detail 09/01/19 Range/Units 00:40 WBC (4.8-10.8) K/uL RBC (4.2-5.4) M/uL Hgb (12.0-16.0) g/dL Hct (37-47) % MCV (80-100) fL MCH (25-34) pg MCHC (32-36) g/dL RDW Std Deviation (36.4-46.3) fL RDW Coeff of Mariano (11.5-14.5) % Plt Count (130-400) K/uL MPV (7.4-10.4) fL PT (9.0-12.0) Seconds INR (0.9-1.1) Sodium (136-145) mmol/L Potassium (3.5-5.1) mmol/L Chloride (98-107) mmol/L Carbon Dioxide (21-32) mmol/L Anion Gap (3-11) BUN (7-18) mg/dl Creatinine (0.6-1.2) mg/dl Est Cr Clr Drug Dosing Est GFR ( Amer) Est GFR (Non-Af Amer) BUN/Creatinine Ratio (10-20) Glucose (70-99) mg/dl Calcium (8.5-10.1) mg/dl Total Bilirubin (0.2-1) mg/dl Direct Bilirubin (0-0.2) mg/dl AST (15-37) U/L ALT (12-78) U/L Alkaline Phosphatase (45-117) U/L Total Protein (6.4-8.2) gm/dl Albumin (3.4-5.0) gm/dl HCG, Qual (Negative) Urine Color Urine Appearance (Clear) Urine pH (4.5-7.5) Ur Specific [place] (1.000-1.030) Urine Protein (Negative) Urine Glucose (UA) (Negative) Urine Ketones (Negative) Urine Blood (Negative) Urine Nitrite (Negative) Urine Bilirubin (Negative) Urine Urobilinogen (Negative) Ur Leukocyte Esterase (Negative) Urine WBC (Auto) (0-5) /hpf Urine RBC (Auto) (0-4) /hpf U Hyaline Cast (Auto) (0-5) /lpf U Epithel Cells (Auto) (0-5) /lpf Urine Bacteria (Auto) (Negative) Ur Renal Epithelial Cell Calcium Oxalate Crystal (None Prsent) Blood Type Blood Type Recheck AB Positive Antibody Screen Crossmatch Imaging Data Radiologist's Impression: Ultrasound pelvic/endovaginal: Assuming a negative test. Heterogenous, likely fibroid uterus. 1.9 x 1.2 cm polypoid lesion in the endometrial cavity. No complex adnexal mass lesions or torsion. Radiologist: Yovani Esparza MD ECG Data Attestation: I personally reviewed and interpreted this ECG as follows: Indication: + SOB/dyspnea and + tachycardia Rate (beats per minute): 99 Rhythm: + normal sinus ECG Intervals/blocks: + Normal QRS and + Normal QT ECG [place]: + Normal ECG ST segments: + Normal ST segments Blood Pressure Blood Pressure Findings: Low blood pressure MDM Narrative Patient well-appearing here on arrival, was noted to be pale, tachycardic, and hypotensive. Patient complaining of 2 weeks of atypical vaginal bleeding, heavy in the last 6 days. Patient found to be anemic with initial hemoglobin of 6. Likely patient's acute blood loss explains her abnormal vital signs. No other evidence for infection. I do not suspect bacteremia/sepsis. Patient sent for pelvic ultrasound to evaluate additional etiology given prior history of fibroids and endometriosis. Patient does have a heterogenous uterus with multiple fibroids. Patient's test was negative. Patient signed blood consent form bedside after discussion of risks versus benefits, and 2 units of packed red cells were ordered. I discussed the case with on-call PUMP INST[employer]ATION AND SERVICER for [facility] Shree who came and evaluated the patient in the emergency room. Patient was made aware of all results and was in agreement with plan. An order was placed for continuous cardiac monitoring. The monitor shows a rate of 105 with sinus tachycardia rhythm. Impression & Plan Acute blood loss anemia, Vaginal bleeding, Acute hypotension, Tachycardia Discharge Plan Visit Data *Final* Discharge Date/Time: 09/01/19 03:59 Chief Complaint: Vaginal Bleeding Stated Complaint: HEAVY BLEEDING FOR 6 DAYS ED Provider: Radha Hernández Discharge Problem: Acute blood loss anemia, Vaginal bleeding, Acute hypotension, Tachycardia Patient Disposition: Admitted As Inpatient Discharge Instructions Interventions: ED Discharge Assessment Last Done: 09/01/19 03:59
[2019-09-01 00:14] LABS: Pregnancy Test, Serum Negative (Negative)
[2019-09-01 00:16] LABS: BUN Creatinine Ratio 28.1 (10-20); Blood Urea Nitrogen 22 mg/dl (7-18); Calcium 8.3 mg/dl (8.5-10.1); Carbon Dioxide 24 mmol/L (21-32); Chloride 109 mmol/L (98-107); Est GFR (African American) 104.7; Est GFR (Non-African American) 90.3; Glucose 132 mg/dl (70-99); Sodium 141 mmol/L (136-145)
[2019-09-01 00:21] LABS: Potassium 3.8 mmol/L (3.5-5.1)
[2019-09-01 00:54] LABS: Prothrombin Time 10.2 Seconds (9.0-12.0)
[2019-09-01 01:04] LABS: Alanine Aminotransferase 22 U/L (12-78); Alkaline Phosphatase 42 U/L (45-117); Aspartate Aminotransferase 14 U/L (15-37); Bilirubin Direct < 0.1 mg/dl (0-0.2); Bilirubin,Total < 0.1 mg/dl (0.2-1); Total Protein 5.8 gm/dl (6.4-8.2)
[2019-09-01] MEDS ORDERED: SODIUM CHLORIDE 0.9% 1000ML 500 ML IV ONE (01:53)
[2019-09-01] MEDS ORDERED: TRANEXAMIC ACID / 0.7% NACL 1,000 MG/100 ML BAG IV STA (02:29)
[2019-09-01] MEDS: SODIUM CHLORIDE 0.9% 500 ML IV SCH ×2 (02:36→05:00)
--- NOTE | 2019-09-01 02:55 | OB/GYN Consultation ---
Date of Consultation September 01, 2019 Assessment & Plan (1) Menorrhagia: Known small fibroids, uterine enlargement with likely adenomyosis, last seen by Dr. Lawton in our office Mar 2019 and started on depo. At this time patient is having heavy bleed despite the depo. She has no absolute contrai ndications to either tranexamic acid or estrogens, so one dose IV TXA given now and will start a daily estrogen pill to try to stop her bleeding. Discussion with the patient today (who has had a tubal and is done with fertility) about alternative treatments and the ultimate possibility of needing hysterectomy if medication alone cannot keep her from repeated episodes of acute blood loss anemia. She is hoping to avoid surgical management if at all possible. Present on Admission?: Yes (2) Acute blood loss anemia: Symptomatic; patient T&C for 2u pRBC and being transfused now. Present on Admission?: Yes History of Present Illness Reason for Consultation: Vaginal bleeding Requesting Physician: Dr. Hernández Attending Physician: Dr. Mcfarlane History of Present Illness 43yo (, TAB) on depo-provera for menorrhagia, dysmenorrhea, with know n uterine fibroids and likely adenomyosis. Presents due to bleeding beginning two weeks ago with last six days being heavy, 2-3 pads per hour, and now feeling dizzy and short of breath. Patient had her last depo injection in July and has next one scheduled for October. Per the ER she was found to be orthostatic with a Hgb of 6.1. The patient was advised to have blood transfusion and consented by the ER for same, which is already started at the time of my arrival in her room. Allergies Allergy/AdvReac Type Severity Reaction Status Date / Time No Known Allergies Allergy Verified 08/31/19 23:56 Home Medications Home Medications Medication Instructions Recorded Confirmed Type medroxyprogesterone 150 mg/mL 150 mg IM Q3MO #1 ml 03/27/19 08/31/19 Rx intramuscular suspension ferrous sulfate [iron] 0 mg PO DAILY 08/31/19 08/31/19 History Patient History Medical History Menorrhagia Uterine fibroid Surgical History S/P appendectomy S/P tubal ligation Family History Father Diabetes Social History Preferred Language: Mongolian Feels Safe at Home: Yes Smoking Status: Former smoker Hx Alcohol Use: Yes Physical Exam Constitutional: WD/WN, vitals as above Somewhat pale and lying supine Eyes: PERRL, conjunctivae normal, anicteric sclerae ENMT: external ear and nose normal, oropharynx normal Neck: trachea midline, no thyromegaly Respiratory: normal respiratory effort and + respiratory distress Cardiovascular: Rate/Rhythm: regular rate tachy Gastrointestinal (Abdomen): normal bowel sounds, soft, nontender, no hepatosplenomegaly Musculoskeletal: Head/Neck/Chest: normocephalic and head atraumatic Skin: no rashes, warm and dry Psychiatric: A+Ox3, euthymic affect Genitourinary: Bimanual exam 11cm uterus, globular and anteverted with cervix firm but os patent, 5x3cm clot in vaginal vault and pad on patient is 50% full, was changed less than an hour ago per patient. Adnexa normal. Vagina and cervix without trauma. External genitalia normal with blood staining. Results & Data Vital Signs (Past 12 Hours) Vital Signs Temp Pulse Pulse Resp BP BP Pulse Ox 09/01/19 02:18 98.2 F 101 H 17 97/62 L 100 09/01/19 02:08 98.8 F 09/01/19 02:03 99.1 F 100 H 18 93/67 L 98 09/01/19 01:53 98.2 F 94 H 18 101/64 99 09/01/19 01:40 98.6 F 102 H 17 96/65 L 100 09/01/19 01:23 94 H 15 95/65 L 100 08/31/19 23:20 98.2 F 114 H 20 109/70 98
[2019-09-01] MEDS ORDERED: ESTROGENS, CONJUGATED 0.625 MG TAB PO SCH (03:05)
[2019-09-01] MEDS ORDERED: ONDANSETRON INJ 2 MG/ML 2 ML VIAL IV PRN (05:13)
[2019-09-01] MEDS ORDERED: ACETAMINOPHEN 325 MG TAB PO PRN (05:13)
[2019-09-01] MEDS ORDERED: LOPERAMIDE HCL 2 MG CAP PO PRN (05:13)
[2019-09-01] MEDS ORDERED: MEDROXYPROGESTERONE ACETATE 150 MG/ML VIAL IM SCH (05:13)
--- NOTE | 2019-09-01 07:14 | Gynecologic Progress Note ---
Date of Service September 01, 2019 Assessment & Plan (1) Acute blood loss anemia: Symptoms improved s/p pRBC, finishing 2nd unit soon. Will check H&H at 9am and if improved appropriately and vitals remain normal, pt can be discharged to home. Rx for 3 days premarin PO to stabilize uterine lining. Will need outpatient follow up in about 2 weeks to see how she is feeling and plan further therapy if bleeding persists or resumes. Admission and Anticipated Discharge Date Admission Date: September 01, 2019 Subjective Resting in bed, has not tried to get up but thinks she is feeling more normal and less weak / tired. Notes that bleeding has slowed - she was able to sleep several hours without changing her pad or bleeding through. Physical Exam Constitutional: WD/WN, vitals as above Eyes: PERRL, conjunctivae normal, anicteric sclerae ENMT: external ear and nose normal, oropharynx normal Neck: trachea midline, no thyromegaly Respiratory: normal respiratory effort; no respiratory distress and does not use accessory muscles Cardiovascular: Rate/Rhythm: regular rate and regular rhythm Gastrointestinal (Abdomen): Percussion/Palpation: abdomen soft; abdomen nontender Skin: no rashes, warm and dry (improved color) Psychiatric: A+Ox3, euthymic affect Results & Data ([facility]) Vital Signs (Past 12 Hours) Vital Signs Temp Pulse Pulse Resp BP BP Pulse Ox 09/01/19 06:30 98.2 F 89 18 91/59 L 100 09/01/19 06:00 98.2 F 88 18 96/63 L 99 09/01/19 05:45 98.4 F 89 20 92/61 L 98 09/01/19 05:28 98.1 F 96 H 18 106/69 99 09/01/19 05:14 98.4 F 105 H 18 114/77 98 09/01/19 03:48 98.1 F 92 H 15 100/70 100 09/01/19 02:48 99.0 F 96 H 16 101/61 100 09/01/19 02:18 98.2 F 101 H 17 97/62 L 100 09/01/19 02:08 98.8 F 09/01/19 02:03 99.1 F 100 H 18 93/67 L 98 09/01/19 01:53 98.2 F 94 H 18 101/64 99 09/01/19 01:40 98.6 F 102 H 17 96/65 L 100 09/01/19 01:23 94 H 15 95/65 L 100 08/31/19 23:20 98.2 F 114 H 20 109/70 98 PG Care Time/CCT Total # of Minutes Spent Total Time Spent with Patient: Total time spent is greater than 50% in coordination of care (as documented) at patient's floor/unit and/or counseling patient: Coding Level of Care Code 59241 Subseq Hosp Care Lvl 2 Diagnoses Acute blood loss anemia D62
--- NOTE | 2019-09-01 08:31 | Ultrasound Report ---
PELVIC ULTRASOUND, TRANSABDOMINAL AND TRANSVAGINAL HISTORY: vaginal bleeding COMPARISON: Abdominal ultrasound 02/08/2006. FINDINGS: Uterus: 9.0 x 5.0 x 7.9 cm. The myometrium remains heterogeneous. There is a heterogeneous shadowing lesion within the anterior wall of the uterus measuring 3.5 x 3.4 x 3.2 cm. This appears to abut the endometrium and could represent a submucosal fibroid. There are a few additional hypoechoic/heterogen eous lesions seen within the uterus with the largest intramural fibroid measuring 3.2 x 3.2 x 2.9 cm. There is suggestion of an echogenic lesion within the fundus of the endometrium measuring 2.0 x 1.2 x 1.3 cm. This is concerning for a polyp. Right ovary: Normal in size and demonstrates normal color flow. Left ovary: Normal in size and demonstrates normal color flow. Miscellaneous:No pelvic free fluid. IMPRESSION: Heterogeneous uterus containing multiple fibroids. There is also a 2.0 x 1.2 x 1.3 cm echogenic lesio n within the endometrium concerning for a polyp. Follow-up nonemergent gynecologic consultation recom mended for further evaluation. ACT 112: Negative or not required by law. Electronically signed by: Chintan Milligan M.D. 09/01/2019 8:30 AM
[2019-09-01] MEDS ORDERED: FERROUS SULFATE 325 MG TAB PO SCH (09:00)
[2019-09-01 09:16] LABS: Hematocrit (blood only) 22.1 % (37-47); Hemoglobin 7.1 g/dL (12.0-16.0)
--- NOTE | 2019-09-01 12:08 | Electrocardiogram Report ---
Test Reason : Blood Pressure : / mmHG Vent. Rate : 099 BPM Atrial Rate : 099 BPM P-R Int : 144 ms QRS Dur : 076 ms QT Int : 362 ms P-R-T Axes : 061 030 031 degrees QTc Int : 464 ms Normal sinus rhythm Poor R wave progression, consider anterior MT vs. lead placement vs. LVH Abnormal ECG When compared with ECG of 21-MAY-2016 18:15, No significant change was found Confirmed by Julian Martin ([id number]) on 09/01/2019 12:08:19 PM Referred By: REFERRED SELF Confirmed By:Julian Martin
[2019-09-01 12:12] VITALS: BP 106/67; PULSE 94; TEMP 98.1; O2SAT 99
--- NOTE | 2019-09-04 08:01 | Discharge Summary ---
Date of Service September 04, 2019 Hospital Course (1) Acute blood loss anemia: Symptoms improved s/p pRBC, finishing 2nd unit soon. Will check H&H at 9am and if improved appropriately and vitals remain normal, pt can be discharged to home. Rx for 3 days premarin PO to stabilize uterine lining. Will need outpatient follow up in about 2 weeks to see how she is feeling and plan further therapy if bleeding persists or resumes. Coding Level of Care Code 24292 OBS Care - Discharge Diagnoses Acute blood loss anemia D62
== END 2019-09-01 11:52 | disposition home or self-care (01) | DRG 760 ==
LOC: ED 23:17 → 4S2 09-01 03:04